=== PATIENT | male | born 1995 | race Caucasian/White ===

== ENCOUNTER 2024-11-18 06:56 | Inpatient (IN) | payer SELFPAY ==
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
[2024-11-18] VITALS (7 sets, daily range): BP systolic 114–158; BP diastolic 65–108; PULSE 65–82; RESP 12–18; TEMP 36.3–36.8; O2SAT 97–100; BMI 18.2
--- NOTE | ~2024-11-18 | CT_ITS ---
EXAMINATION: CT abdomen pelvis wo con, 11/18/2024 8:35 CDT HISTORY: upper abdominal pain, vomiting COMPARISON: No comparisons available. TECHNIQUE: CT scan of the abdomen and pelvis was performed without IV contrast. One or more of the following dose reduction techniques were used: automated exposure control, adjustment of the mA and/or kV according to patient size, use of iterative reconstruction technique. Unless otherwise stated, incidental findings do not require dedicated follow up imaging FINDINGS: CT abdomen: LUNG BASES: The lung bases are clear. The visualized portions of the heart and pericardium are unremarkable. LIVER: Unremarkable, liver contours intact, no lesions. SPLEEN: Unremarkable, no splenomegaly. KIDNEYS: Right Kidney: Unremarkable. No calculi. No hydronephrosis. Left Kidney: Unremarkable. No calculi. No hydronephrosis ADRENAL GLANDS: Unremarkable. PANCREAS: Unremarkable. GALLBLADDER/BILIARY: Unremarkable. No biliary dilatation. STOMACH AND ESOPHAGUS: Adjacent to the gastric pylorus there is a probable large diverticulum extending superiorly into the pericholecystic space in AP and transverse dimensions 1.5 x 1 cm and longitudinally 3.8 cm, there is no surrounding inflammation however there is distention of the stomach noted. BOWEL/MESENTERY: No colitis or diverticulitis. Appendix normal. Mesentery normal. No dilated small bowel loops. ADENOPATHY/RETROPERITONEUM: No lymphadenopathy. AORTA/VASCULATURE: Normal caliber aorta. FREE FLUID OR FREE AIR: None. CT pelvis: SOLID ORGANS/REPRODUCTIVE: Unremarkable. BLADDER: Within normal limits. OSSEOUS STRUCTURES: No acute osseous abnormality.No suspicious lesions. OVERLYING SOFT TISSUES: Unremarkable. IMPRESSION: Unusual air collection detailed above possibly a large eccentrically located gastric diverticulum although the appearance is atypical. Possibility of a contained perforated gastric ulcer is not excluded. Clinical correlation is required. Endoscopy may be of benefit Reviewed, dictated and finalized at location P. IMPRESSION: Unusual air collection detailed above possibly a large eccentrically located ga stric diverticulum although the appearance is atypical. Possibility of a contai tia perforated gastric ulcer is not excluded. Clinical correlation is required. Endoscopy may be of benefit
--- NOTE | ~2024-11-18 | XR_ITS ---
EXAMINATION: XR UGI water soluble wo kub DATE: 11/18/2024 12:14 INDICATION: Possible perforated viscus. Vomiting and abdominal pain. TECHNIQUE: The patient drank water-soluble contrast. A total of 780 fluoroscopic images of the esophagus, stomach, and proximal small bowel were obtained. Planned small bowel follow-through portion of the study was not obtained as patient terminated the procedure, refusing to ingest more contrast following the upper GI portion of the examination. A total of 2 overhead radiographs and 778 fluoroscopic images were recorded. Fluoroscopy exposure time was 1.8 minutes. Total DAP was 4.9 Gycm^2. COMPARISON: . FINDINGS: The esophagus is normal without mass or stricture. Esophageal motility is normal. There is no hiatal hernia. There are couple episodes of spontaneous gastroesophageal reflux of a small amount of contrast into the distal esophagus.. The stomach and proximal small bowel are normal. No evident residual contrast in the region of the gastric pylorus or duodenal bulb. The proximal most duodenum however does loop slightly more cephalad than typical which likely accounts for the region of gas identified on the prior CT. IMPRESSION: 1. A couple episodes of spontaneous gastroesophageal reflux of small amounts of contrast into the distal esophagus. Otherwise unremarkable upper GI study. Of note there is no evident extraluminal leakage of contrast in the region of gas identified on prior CT which is likely within the duodenal bulb which lies slightly more cephalad than typical. Reviewed, dictated and finalized at location A. IMPRESSION: 1. A couple episodes of spontaneous gastroesophageal reflux of small amounts of contrast into the distal esophagus. Otherwise unremarkable upper GI study. Of note there is no evident extraluminal leakage of contrast in the region of gas identified on prior CT which is likely within the duodenal bulb which lies slig htly more cephalad than typical.
--- OUTSIDE RECORDS SUMMARY | 2024-11-18 07:27 | XMS_ITS | Patient Health Record ---
[facility] Organization [facility] Address [address] [place] [address] Support Name Relationship Address Phone MARTHA HUNT Emergency Contact Unknown ELIZABETH SETHI Guarantor Unknown [phone] Reason For Referral No Information Social History Social History Drugs/Alcohol: Social Info Question Answer Notes Drugs Have you used drugs other than those for medical reasons in the past 12 months? 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 some days, but not every day How many cigarettes a day do you smoke? 5 or less Plan Of Treatment No Information
--- OUTSIDE RECORDS SUMMARY | 2024-11-18 07:28 | XMS_ITS | Clinical Summary ---
Author Organization [facility] Address [address] [place] [address] Care Team Providers Care Italian Lecturer Name Role Phone Doris Tenorio MD Primary Care Provider Source Comments [facility],non-owned Affiliates and Associated Physician Practices is amultiple site organization consisting of ambulatory clinics and hospital sitesin [place], [place], [place] and [place]. This disclosure is being madepursuant to the Care Everywhere program and may not contain all information available regarding this patient. Last updated 17.[facility] Allergies Active Allergy Reactions Criticality Noted Date Comments Methylphenidate Hcl Er Anaphylaxis High 06/30/2024 Medications * Be aware that medications may not be up to date on this document. Alwaysverify current medications with the patient. ondansetron, disintegrating, (Zofran ODT) 4 MG tablet Take 1 (one) tablet by mouth every 6 hours as needed for Nausea/Vomiti ng Allow tablet to dissolve on the tongue 12 tablet 06/30/2024 Active Social History Tobacco Use Types Packs/Day Years Used Date Smoking Tobacco: Never Assessed Sex and Gender Information Value Date Recorded Sex Assigned at Not on file Legal Sex Male 5:31 PM CDT Gender Identity Not on file Sexual Orientation Not on file Last Filed Vital Signs Vital Sign Reading Time Taken Comments Blood Pressure 155/60 06/30/2024 6:50 PM CDT Pulse 52 06/30/2024 6:50 PM CDT Temperature 36.1 C (96.9 F) 06/30/2024 5:39 PM CDT Respiratory Rate 14 06/30/2024 6:50 PM CDT Oxygen Saturation 99% 06/30/2024 6:50 PM CDT Inhaled Oxygen Concentration - - Weight 48.1 kg (106 lb) 06/30/2024 5:39 PM CDT Height 167.6 cm (5' 6) 06/30/2024 5:39 PM CDT Body Mass Index 17.11 06/30/2024 5:39 PM CDT Plan of Treatment Health Maintenance Due Date Last Done Comments HIV SCREENING 01/29/2008 DTAP/TDAP/TD VACCINES (1 - Tdap) 01/29/2012 HEPATITIS B VACCINE (1 of 3 - 19+ 3-dose series) 01/29/2012 HPV VACCINE (1 - 3-dose SCDM series) 01/29/2020 DEPRESSION SCREENING 02/21/2024 MEDICARE AWV CALENDAR YEAR 2024 COVID-19 VACCINE (1 - 2023-2 5 season) 2024 INFLUENZA VACCINE (#1) 2024 ZOSTER VACCINE (1 of 2) 2043 HEPATITIS C SCREENING Completed 08/08/2022 HIB VACCINE Aged Out No longer eligi ble based on patient's age to complete this topic MENINGOCOCCAL (Group B) VACC INE SHARED DECISION-MAKING Aged Out No longer eligibl e based on patient's age to complete this topic MENINGOCOCCAL GROUPS A/C/Y/W VACCINE Aged Out No longer eligible b ased on patient's age to complete this topic PNEUMOCOCCAL VACCINE Aged Out No long er eligible based on patient's age to complete this topic Insurance MEDICARE ADV Care Teams Italian Lecturer Relationship Specialty Start Date End Date Doris Tenorio MD [facility] [address] [place] [id number] PCP - General Family Medicine 06/30/24
--- OUTSIDE RECORDS SUMMARY | 2024-11-18 07:28 | XMS_ITS | Patient Health Record ---
Author Organization [facility] Address [address] [place] [address] [address] [place] [place] [address] Care Team Providers Care Local Hazmat Driver Name Role Phone Anais Garza Unavailable [phone] Allergies Allergen (clinical drug ingredient) Drug/Non Drug Allergy documented on EMR Reaction Allergy Type Onset Date Status methylphenidate Methylphenidate Unknown Drug Allergy Active methylphenidate Ritalin Unknown Drug Allergy A ctive Reason For Referral No Information Social History Social History Drugs/Alcohol: Social Info Question Answer Notes Drug Use Are you a drug user? Yes What form of drug do you use? Marijuana Alcohol Use Do you drink alcohol? No Tobacco Use: Social Info Question Answer Notes Tobacco Use Do you smoke - Yes How many cigarettes a day do you smoke - pack per day Plan Of Treatment No Information Insurance Providers Payer Name Payer Address Payer Phone Subscriber Number Group Number Insured Name Patient Relationship to Insured Coverage Start Date Coverage End Date [place] [id number] [address] [place] [id number] [phone] [id number] [facility] Jimbo Alvarado Self - patient is the insured Medical (General) History Medical History History ICD Code Depression Surgical History Surgery Date(Month/Year) Tonsilectomy Adnoids Rt knee Jaw Hospitalization History Reason Date(Month/Year) Psych X 2
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
[2024-11-18] MEDS: PANTOPRAZOLE SODIUM IV 40 MG VIAL IV PUSH ×3 (07:32→17:48)
[2024-11-18] MEDS: ONDANSETRON INJ 4 MG/2 ML VIAL IV PUSH (07:32)
[2024-11-18] MEDS: LACTATED RINGERS 1,000 ML 999 ML IV CONT (07:33)
[2024-11-18 07:49] LABS: Hematocrit 57.0 % (42.0-52.0); Hemoglobin 20.3 g/dL (14.0-18.0); Immature Granulocyte Percent A 0.6 % (0-0.5); Lymphocytes Absolute Auto 0.68 K/mm3 (0.9-3.2); Mean Corpuscular HGB Conc 35.6 g/dl (32-36); Mean Corpuscular Hemoglobin 30.9 pg (26-34); Mean Corpuscular Volume 86.8 fl (80-100); Nucleated Red Blood Cells Absolute Auto 0.000 K/mm3 (0.0-0.012); Nucleated Red Blood Cells Perc 0.0 % (0.0-0.2); Platelet Count Result 368 k/mm3 (150-375); Red Blood Count 6.57 M/mm3 (4.6-6.20); White Blood Count 25.8 K/mm3 (4.5-10.0)
[2024-11-18 08:13] LABS: Alanine Aminotransferase 25 U/L (6-50); Albumin Level 5.8 g/dL (3.5-5.1); Alkaline Phosphatase 99 U/L (38-126); Anion Gap 24 mmol/L (4-12); Aspartate Amino Transferase 32 U/L (17-59); Bilirubin,Total 1.4 mg/dL (0.2-1.3); Blood Urea Nitrogen 28 mg/dL (9-20); Calcium 11.6 mg/dL (8.4-10.2); Carbon Dioxide 16 mmol/L (22-30); Chloride 99 mmol/L (98-107); Estimated CRCL calculation 22 ml/min; Estimated Glomerular Filt Rate 22; Glucose 155 mg/dL (65-110); Lipase 69 U/L (23-300); Magnesium 2.4 mg/dL (1.6-2.3); Potassium 3.8 mmol/L (3.4-5.0); Sodium 139 mmol/L (137-145)
[2024-11-18 08:19] LABS: Total Protein 10.8 g/dL (6.3-8.2)
--- NOTE | 2024-11-18 08:32 | ED.ABDPAIN ---
HPI - Abdominal Pain General Chief Complaint: Abdominal Pain Stated Complaint: ABD PAIN Time Seen by Provider: 11/18/24 07:12 Source: patient, EMS and RN notes reviewed Mode of arrival: EMS Limitations: no limitations History of Present Illness HPI narrative: This is a 29 year old male with history of Crohn's disease who presents for evaluation of abdominal pain with nausea and vomiting. She states she developed generalized abdominal pain yesterday and it has been constant. She has been having nausea and vomiting and unable to keep anything down. He also reports cramping all over her body. HE denies fever or chills. He states that he was hospitalized 3 weeks ago in [place] for kidney injury from similar symptoms. Related Data Home Medications ?Medication ?Instructions ?Recorded ?Confirmed ?Last Taken ?Type No Home Medications 11/18/24 11/18/24 Unknown History Allergies Allergy/AdvReac Type Severity Reaction Status Date / Time methylphenidate (From Allergy Intermediate Anaphylaxis Verified 11/18/24 07:13 Ritalin) [facility] Past Medical History Medical History (Updated 11/18/24 @ 13:56 by Samia Bernard MD) Crohn disease Social History Social History (Updated 11/18/24 @ 13:46 by Samia Bernard MD) Substance use: never Exam Const: General: no acute distress and alert Nutritional Appearance: thin Orientation/consciousness: patient oriented x3 HENMT: Head: normal to inspection Eyes: EOM: EOMs intact bilaterally Resp: Effort & Inspection: normal respiratory effort Auscultation: clear to auscultation bilaterally Cardio: Rate: regular rate Rhythm: regular rhythm Heart sounds: no murmurs GI: GI Palp: Yes Soft to palpation, No Tenderness to palpation present (GI), No Guarding due to palpation present (GI) and No Rigid due to palpation Auscultation: normal bowel sounds Skin: General skin exam: normal color Rashes: no rashes Neuro: General: patient oriented x3, moves all extremities and CN's II-XI intact bilaterally Psych: Mental Status: mental status grossly normal Affect: normal affect Attitude: cooperative Course Reevaluation(s) Reevaluation #1: I discussed with patient plan to admit with kidney failure and possible perforated viscous. He was given morphine 2 mg IV and phenergan 12.5mg for continued nausea. He stated he needed these meds for NGT placement and then nursing reports he refused NG. Date: 11/18/24 Time: 10:30 Consultations Consultation #1: I Spoke with Dr. Garcia about patient labs and CT. He thinks this is more surgical so at this time he can be consulted if they decide its needed. Date: 11/18/24 Time: 09:53 Consultation #2: I spoke with DR. Olivas. He recommends Upper GI, antibiotics and NPO. Date: 11/18/24 Time: 10:12 Vital Signs Vital signs: Vital Signs Temperature 97.3 F L 11/18/24 07:00 Pulse Rate 76 11/18/24 07:00 Respiratory Rate 18 11/18/24 07:00 Blood Pressure 151/108 H 11/18/24 07:00 Pulse Oximetry 100 11/18/24 07:00 Oxygen Delivery Room Air 11/18/24 07:00 Temperature 97.3 F L 11/18/24 07:00 Pulse Rate 71 11/18/24 10:27 Respiratory Rate 12 11/18/24 10:27 Blood Pressure 134/87 11/18/24 10:27 Pulse Oximetry 100 11/18/24 10:27 Oxygen Delivery Room Air 11/18/24 07:00 MDM - Abdominal Pain MDM Narrative Medical decision making narrative: Patient presents with nausea, vomiting and abdominal pain. Labs ordered and 1 liter LR initially ordered with 4 mg Zofran. Labs return with elevated wbc 25 K and hemoglobin 20 suggesting hemoconcentration for vomiting, dehydration. CMP shows elevated Cr of 3.2 and we do not have comparison labs. Calcium elevated 11. [address] abdomen and pelvis ordered without contrast due to elevated wbc. CT shows gastric diverticulum vs perforated viscous. I spoke with GI and consulted General surgery. IV morphine and phenergan given to patient. Hospitalist given report and she accepted patient to service. Differential Diagnosis Differential diagnosis: Likely abdominal pain, acute appendicitis, gastroenteritis, pancreatitis, small bowel obstruction and other ([place], perforated viscous) Lab Data Attestation: I reviewed the patient's lab results. 11/18/24 07:34 11/18/24 07:34 Labs: Lab Results 11/18/24 11/18/24 11/18/24 Range/Units 07:34 08:47 09:49 WBC 25.8 H (4.5-10.0) K/mm3 RBC 6.57 H (4.6-6.20) M/mm3 Hgb 20.3 H (14.0-18.0) g/dL Hct 57.0 H (42.0-52.0) % MCV 86.8 (80-100) fl MCH 30.9 (26-34) pg MCHC 35.6 (32-36) g/dl RDW 13.2 (11.5-14.5) % Plt Count 368 (150-375) k/mm3 MPV 10.4 (7.4-10.4) fl Immature Gran % (Auto) 0.6 H (0-0.5) % Neut % (Auto) 91.2 H (45.5-73.1) % Lymph % (Auto) 2.6 L (18.3-44.2) % Carson % (Auto) 5.4 (2.6-8.5) % Eos % (Auto) 0.0 (0-4.4) % Baso % (Auto) 0.2 (0.2-1.2) % Lymph # (Auto) 0.68 L (0.9-3.2) K/mm3 Carson # (Auto) 1.4 H (0.1-0.6) K/mm3 Eos # (Auto) 0.0 (0-0.3) K/mm3 Baso # (Auto) 0.0 (0.0-0.1) K/mm3 Abs Immat Gran (auto) 0.15 H (0.00-0.031) K/mm3 Absolute Neuts (auto) 23.6 H (1.3-6.7) K/mm3 Absolute Nucleated RBC 0.000 (0.0-0.012) K/mm3 Nucleated RBC % 0.0 (0.0-0.2) % Sodium 139 (137-145) mmol/L Potassium 3.8 (3.4-5.0) mmol/L Chloride 99 (98-107) mmol/L Carbon Dioxide 16 L (22-30) mmol/L Anion Gap 24 H (4-12) mmol/L BUN 28 H (9-20) mg/dL Creatinine 3.27 H (0.7-1.3) mg/dL Estim Creat Clear Calc 22 ml/min Estimated GFR 22 L (59 - ) Glucose 155 H (65-110) mg/dL Lactic Acid 1.5 (0.7-2.0) mmol/L Calcium 11.6 H (8.4-10.2) mg/dL Magnesium 2.4 H (1.6-2.3) mg/dL Total Bilirubin 1.4 H (0.2-1.3) mg/dL AST 32 (17-59) U/L ALT 25 (6-50) U/L Alkaline Phosphatase 99 (38-126) U/L Total Protein 10.8 H (6.3-8.2) g/dL Albumin 5.8 H (3.5-5.1) g/dL Lipase 69 (23-300) U/L Urine Color Dark yellow (Yellow) Urine Appearance Turbid H (Clear) Urine pH 5.0 (5.0-9.0) Ur Specific [place] 1.023 (1.001-1.035) Urine Protein 4+ H (Negative) mg/dL Urine Glucose (UA) Trace H (Negative) mg/dL Urine Ketones Trace H (Negative) mg/dL Ur Blood (Man) 3+ H (Negative) Urine Nitrate Negative (Negative) Urine Bilirubin 2+ H (Negative) Urine Urobilinogen 1.0 (<2.0) mg/dL Add Ur Microanalysis Reviewed Leukocyte Esterase Rfl 1+ H (Negative) EDITH/UL Urine RBC 6-10 H (0-2) /hpf Urine WBC 21-50 H (0-3) /hpf Ur Squamous Epith Cells Few (Few) /hpf Urine Bacteria None seen /hpf Urine Casts >20 Hyaline Casts Present (None) /lpf Granular Casts Present (None) /lpf Waxy Casts Present H (None) /lpf Urine Mucus Present /lpf Imaging Data Radiologist's impression: ITS Impressions Abdomen/Pelvis CT 11/18/24 08:48 IMPRESSION: Unusual air collection detailed above possibly a large eccentrically located gastric diverticulum although the appearance is atypical. Possibility of a contained perforated gastric ulcer is not excluded. Clinical correlation is required. Endoscopy may be of benefit Upper GI Series 11/18/24 12:24 IMPRESSION: 1. A couple episodes of spontaneous gastroesophageal reflux of small amounts of contrast into the distal esophagus. Otherwise unremarkable upper GI study. Of note there is no evident extraluminal leakage of contrast in the region of gas identified on prior CT which is likely within the duodenal bulb which lies slightly more cephalad than typical. Critical Care Time Critical Care Time Critical Care Time: Yes Total Critical Care Time: 40 Discharge Plan Discharge Clinical Impression: Acute kidney injury, Hypercalcemia, Dehydration, Abnormal abdominal CT scan Nausea & vomiting Qualifiers: Vomiting type: unspecified Qualified Code(s): R11.2 - Nausea with vomiting, unspecified Patient Disposition: Still a Patient Condition: Guarded Prognosis
--- NOTE | 2024-11-18 08:36 | PC.NURSE ---
Pt to CT scan via stretcher
[2024-11-18] MEDS: SODIUM CHLORIDE 0.9% IV 1,000 ML 999 ML IV CONT (08:43)
[2024-11-18 09:27] LABS: Add Urine Microscopic? YES; Appearance Urine Turbid (Clear); Glucose Urine UA Trace mg/dL (Negative); Leukocyte Esterase Ur 1+ LEU/UL (Negative); Need Manual Microscopic Reviewed; Nitrate Urine Negative (Negative); Non Pathogenic Casts >20; Specific Grav Ur 1.023 (1.001-1.035)
[2024-11-18] MEDS: cefTRIAXone 1 GM in SODIUM CHLORIDE 0.9% IV 50 ML 100 ML IVPB (09:58)
[2024-11-18] MEDS: metroNIDAZOLE 500 MG/ISO 100ML 500 MG/100 ML BAG 100 MG IVPB ×2 (10:28→20:59)
--- NOTE | 2024-11-18 10:42 | P.CONGS_ITS ---
Assessment and Plan Assessment and plan (1) Abdominal pain: Code(s): R10.9 - Unspecified abdominal pain Status: Acute Assessment and Plan: Patient presented to the ED this morning with 1 day of abdominal pain with associated nausea and vomiting. Denies hematemesis. Patient has history of Crohn's disease, but denies following with the GI doctor. He does not take any medications or steroids for his Crohn's. Upon admission to the ED, lab work revealed a WBC count of 25.8. A CT of the abdomen and pelvis was obtained and demonstrated a large eccentrically located gastric atypically appearing diverticulum that could also represent a contained perforated gastric ulcer. Patient does not show any signs of acute peritonitis. Minimally tender to palpation of his abdomen. * NG tube ordered. Once placed, we will obtain upper GI series. We will follow for results and treat accordingly. * Continue IV antibiotics, IV fluids and pain and nausea control. Patient should remain NPO. (2) Acute kidney injury: Code(s): N17.9 - Acute kidney failure, unspecified Status: Acute Assessment and Plan: Lab work revealed elevated BUN of 28 and elevated creatinine of 3.27. Patient does state that 3 weeks ago he was hospitalized in [place] for abdominal pain and was found to have MIRACLE. He states that he was told he had severe dehydration. Denies any urinary symptoms. Continue IV fluids and manage per hospitalist team. Plan Discussed patient's case and plan of care with Dr. Anthony. History of Present Illness Consult details Consult date: 11/18/24 Reason for consult: other (possible perforated gastric ulcer) Requesting physician: Samia Bernard MD Narrative: Patient is a 29 year old male current smoker with history of Crohns who we have been asked to see in surgical consultation for a possible perforated gastric ulcer. Patient states that he awoke yesterday with mid abdominal pain. He then developed nausea and vomiting. No hematemesis. He notes several episodes of emesis with last episode being this morning before presenting to the ED. Patient has had similar instances of this pain in the past. He was recently admitted to a hospital in [place] for similar symptoms, and was found to have an MIRACLE. He states that doctors told him he was severely dehydrated. He denies having any imaging or other testing done during this hospitalization. Patient states that he was diagnosed with Crohns many years ago. He denies being on any medication for this. He states that he usually just presents to the ED when he has flare ups. Denies taking steroids. He states he has never followed with a GI doctor. Patient's last BM was 2 days ago. He late at two days ago. Upon admission to the ED this morning, patient's vital signs have been stable aside from some elevated blood pressures, now stabilized. Labs revealed a WBC count of 25.8. Hgb 20.3. BUN/Cr elevated. A CT of the abdomen and pelvis was obtained and demonstrated a probable large diverticulum adjacent to the gastric pylorus extending superiorly into the pericholecystic space in AP and transverse dimensions 1.5 x 1 cm in longitudinal only 3.8 cm. No surrounding inflammation, however there is distension of the stomach. Radiology report read a possibility of a contained perforated gastric ulcer. At this point, general surgery team was consulted. Patient will be admitted to the hospitalist service for medical management. Upon my interview with the patient, he repeatedly asked for Phenergan. [facility] Social History Social History (Updated 11/18/24 @ 08:35 by Samia Bernard MD) Smoking status: Current every day smoker Substance use: never Meds Home Medications and Allergies Allergies Allergy/AdvReac Type Severity Reaction Status Date / Time methylphenidate (From Allergy Intermediate Anaphylaxis Verified 11/18/24 07:13 Ritalin) Vital Signs Vital Signs - 24 hr 11/18/24 07:00 11/18/24 08:47 11/18/24 09:55 Temperature 97.3 F L Pulse Rate 76 65 75 Respiratory Rate 18 12 17 Blood Pressure 151/108 H 125/105 H 139/97 H Pulse Oximetry 100 100 100 Oxygen Delivery Room Air 11/18/24 10:27 Temperature Pulse Rate 71 Respiratory Rate 12 Blood Pressure 134/87 Pulse Oximetry 100 Oxygen Delivery Exam 2 Const: General: uncomfortable Neck: Neck: supple and no JVD Resp: Effort & Inspection: normal respiratory effort Cardio: Rate: regular rate GI: Inspection: non-distended GI Palp: Yes Soft to palpation, Yes Tenderness to palpation present (GI) (Note some mild tenderness. No peritoneal signs.), No Guarding due to palpation present (GI) and No Hernia present A uscultation: abnormal bowel sounds (Hypoactive) Other: When left mid abdomen was palpated, patient stated that this felt like a massage and did not elicit pain. Skin: General skin exam: normal color and no rashes or lesions noted Neuro: Speech: normal speech Extrem: General: normal to inspection Psych: Mental Status: mental status grossly normal Results Labs 11/18/24 07:34 11/18/24 07:34 Labs: Abnormal lab results 11/18/24 11/18/24 Range/Units 07:34 08:47 WBC 25.8 H (4.5-10.0) K/mm3 RBC 6.57 H (4.6-6.20) M/mm3 Hgb 20.3 H (14.0-18.0) g/dL Hct 57.0 H (42.0-52.0) % Immature Gran % (Auto) 0.6 H (0-0.5) % Neut % (Auto) 91.2 H (45.5-73.1) % Lymph % (Auto) 2.6 L (18.3-44.2) % Lymph # (Auto) 0.68 L (0.9-3.2) K/mm3 [place] # (Auto) 1.4 H (0.1-0.6) K/mm3 Abs Immat Gran (auto) 0.15 H (0.00-0.031) K/mm3 Absolute Neuts (auto) 23.6 H (1.3-6.7) K/mm3 Carbon Dioxide 16 L (22-30) mmol/L Anion Gap 24 H (4-12) mmol/L BUN 28 H (9-20) mg/dL Creatinine 3.27 H (0.7-1.3) mg/dL Estimated GFR 22 L (59 - ) Glucose 155 H (65-110) mg/dL Calcium 11.6 H (8.4-10.2) mg/dL Magnesium 2.4 H (1.6-2.3) mg/dL Total Bilirubin 1.4 H (0.2-1.3) mg/dL Total Protein 10.8 H (6.3-8.2) g/dL Albumin 5.8 H (3.5-5.1) g/dL Urine Appearance Turbid H (Clear) Urine Protein 4+ H (Negative) mg/dL Urine Glucose (UA) Trace H (Negative) mg/dL Urine Ketones Trace H (Negative) mg/dL Ur Blood (Man) 3+ H (Negative) Urine Bilirubin 2+ H (Negative) Leukocyte Esterase Rfl 1+ H (Negative) EDITH/UL Urine RBC 6-10 H (0-2) /hpf Urine WBC 21-50 H (0-3) /hpf Waxy Casts Present H (None) /lpf Diabetes panel 11/18/24 Range/Units 07:34 Sodium 139 (137-145) mmol/L Potassium 3.8 (3.4-5.0) mmol/L Chloride 99 (98-107) mmol/L Carbon Dioxide 16 L (22-30) mmol/L BUN 28 H (9-20) mg/dL Creatinine 3.27 H (0.7-1.3) mg/dL Glucose 155 H (65-110) mg/dL Calcium 11.6 H (8.4-10.2) mg/dL AST 32 (17-59) U/L ALT 25 (6-50) U/L Alkaline Phosphatase 99 (38-126) U/L Total Protein 10.8 H (6.3-8.2) g/dL Albumin 5.8 H (3.5-5.1) g/dL Calcium panel 11/18/24 Range/Units 07:34 Calcium 11.6 H (8.4-10.2) mg/dL Albumin 5.8 H (3.5-5.1) g/dL Pituitary panel 11/18/24 Range/Units 07:34 Sodium 139 (137-145) mmol/L Potassium 3.8 (3.4-5.0) mmol/L Chloride 99 (98-107) mmol/L Carbon Dioxide 16 L (22-30) mmol/L BUN 28 H (9-20) mg/dL Creatinine 3.27 H (0.7-1.3) mg/dL Glucose 155 H (65-110) mg/dL Calcium 11.6 H (8.4-10.2) mg/dL Adrenal panel 11/18/24 Range/Units 07:34 Sodium 139 (137-145) mmol/L Potassium 3.8 (3.4-5.0) mmol/L Chloride 99 (98-107) mmol/L Carbon Dioxide 16 L (22-30) mmol/L BUN 28 H (9-20) mg/dL Creatinine 3.27 H (0.7-1.3) mg/dL Glucose 155 H (65-110) mg/dL Calcium 11.6 H (8.4-10.2) mg/dL Total Bilirubin 1.4 H (0.2-1.3) mg/dL AST 32 (17-59) U/L ALT 25 (6-50) U/L Alkaline Phosphatase 99 (38-126) U/L Total Protein 10.8 H (6.3-8.2) g/dL Albumin 5.8 H (3.5-5.1) g/dL All other labs normal.
[2024-11-18] MEDS: PROMETHAZINE HCL 25 MG/ML AMPUL 12.5 MG IV PUSH (10:46)
[2024-11-18] MEDS: MORPHINE SULFATE (*CRX) 4 MG/ML INJ 2 MG IV PUSH ×2 (10:46→13:03)
--- NOTE | 2024-11-18 11:05 | PC.NURSE ---
After inital attempt for NG tube insertion after pain and nausea medication, pt declines NG tube. Pt states Im afraid Im gonna hurt y'all, only way to get this in is for a bunch of grown men to hold me down and force it. This RN requested another attempt and pt refuses NG tube, states Tell the surgeon he will have to do surgery.
--- NOTE | 2024-11-18 12:32 | PM.IMHP ---
H&P: HPI History of Present Illness Date/Time: 11/18/24 12:32 Chief Complaint: Abdominal pain, nausea, vomiting Diarrhea Narrative: 29-year-old male with complex past medical history of Crohn's disease, not on any treatment, presenting with acute abdominal pain, nausea, vomiting, diarrhea. He is not from this area, he was passing through this region, when he decided to come to the emergency room with ongoing abdominal pain. According to him he was admitted in [place] for similar symptoms 3 weeks ago, was treated with IV fluids, discharged. Complains of ongoing abdominal pain, with nausea, vomiting. Denies any blood in the vomitus. Has been having diarrhea for past 2 days as well, denies any blood in stool. Noted to have a leukocytosis of 25.8. CT abdomen pelvis shows Unusual air collection detailed above possibly a large eccentrically located gastric diverticulum although the appearance is atypical. Possibility of a contained perforated gastric ulcer is not excluded. Surgery was consulted. Review of Systems Review of Systems: All systems reviewed & are unremarkable except as noted in HPI and below PMFSH Past Medical History Medical History (Updated 11/18/24 @ 12:49 by Renee Cobb MD) Crohn disease Social History Social History Smoking status: Current every day smoker Substance use: never Meds Home Medications and Allergies Allergies Allergy/AdvReac Type Severity Reaction Status Date / Time methylphenidate (From Allergy Intermediate Anaphylaxis Verified 11/18/24 07:13 Ritalin) Vital Signs Vital Signs - 24 hr 11/18/24 07:00 11/18/24 08:47 11/18/24 09:55 Temperature 97.3 F L Pulse Rate 76 65 75 Respiratory Rate 18 12 17 Blood Pressure 151/108 H 125/105 H 139/97 H Pulse Oximetry 100 100 100 Oxygen Delivery Room Air 11/18/24 10:27 Temperature Pulse Rate 71 Respiratory Rate 12 Blood Pressure 134/87 Pulse Oximetry 100 Oxygen Delivery Exam Const: General: uncomfortable HENMT: Face/Nose/Sinus: Normal nares present Mouth: Yes dry mucous membranes Eyes: Sclera: sclerae normal Neck: Neck: supple Resp: Effort & Inspection: normal respiratory effort Auscultation: clear to auscultation bilaterally Cardio: Rate: regular rate Rhythm: regular rhythm GI: GI Palp: Yes Firmness to palpation present (GI) and Yes Tenderness to palpation present (GI) Auscultation: normal bowel sounds Skin: General skin exam: normal color Neuro: Speech: normal speech Extrem: General: normal to inspection Psych: Mental Status: mental status grossly normal H&P: Results Labs Labs: Short CBC 11/18/24 Range/Units 07:34 WBC 25.8 H (4.5-10.0) K/mm3 Hgb 20.3 H (14.0-18.0) g/dL Hct 57.0 H (42.0-52.0) % Plt Count 368 (150-375) k/mm3 BMP 11/18/24 07:34 Sodium 139 Potassium 3.8 Chloride 99 Carbon Dioxide 16 L BUN 28 H Creatinine 3.27 H Glucose 155 H Calcium 11.6 H Liver Function 11/18/24 Range/Units 07:34 Total Bilirubin 1.4 H (0.2-1.3) mg/dL AST 32 (17-59) U/L ALT 25 (6-50) U/L Alkaline Phosphatase 99 (38-126) U/L Albumin 5.8 H (3.5-5.1) g/dL Urine 11/18/24 Range/Units 08:47 Urine Color Dark yellow (Yellow) Urine Appearance Turbid H (Clear) Urine pH 5.0 (5.0-9.0) Ur Specific [place] 1.023 (1.001-1.035) Urine Protein 4+ H (Negative) mg/dL Urine Glucose (UA) Trace H (Negative) mg/dL Assessment and Plan Assessment and plan (1) Abdominal pain: Code(s): R10.9 - Unspecified abdominal pain Status: Acute (2) Acute kidney injury: Code(s): N17.9 - Acute kidney failure, unspecified Status: Acute (3) Dehydration: Code(s): E86.0 - Dehydration Status: Acute (4) Nausea & vomiting: Code(s): R11.2 - Nausea with vomiting, unspecified Status: Acute (5) Diarrhea: Code(s): R19.7 - Diarrhea, unspecified Status: Acute (6) Hypercalcemia: Code(s): E83.52 - Hypercalcemia Status: Acute (7) Leucocytosis: Code(s): D72.829 - Elevated white blood cell count, unspecified Status: Acute (8) UTI (urinary tract infection): Code(s): N39.0 - Urinary tract infection, site not specified Status: Acute Plan 29-year-old male with past medical history of untreated Crohn's disease presenting with abdominal pain, nausea, vomiting, diarrhea. CT abdomen pelvis with Unusual air collection detailed above possibly a large eccentrically located gastric diverticulum although the appearance is atypical. Possibility of a contained perforated gastric ulcer is not excluded. Surgery has been consulted. 1.? Perforated gastric ulcer: Admit to general medicine NPO IV fluids Zofran, Compazine p.r.n. for nausea, vomiting PPI IV b.i.d. Surgery has been consulted, appreciate the recommendation Plan for NG tube, GI series after NG tube has been placed Obtain blood culture Will start on ceftriaxone, Flagyl Patient has been having diarrhea, will obtain C diff as well Will consider GI consult if necessary 2. Acute kidney injury+ metabolic acidosis+ electrolyte abnormality: All likely in setting of severe dehydration due to ongoing nausea, vomiting, diarrhea Noted hemoconcentration with elevated hemoglobin/hematocrit Continue with IV fluids Avoid nephrotoxins Recheck BMP in a.m. Kidneys looked unremarkable on CT scan done today Nephrology consult Noted anion gap metabolic acidosis, hypercalcemia, hypermagnesemia Again continue with IV fluids 3. Possible UTI: Continue with ceftriaxone Follow-up urine culture 4. Mild hyperglycemia+ glycosuria: Obtain hemoglobin A1c with next set of labs 5. Code status: Full 6. DVT prophylaxis: SCDs 7. Disposition: Admit to General Medicine Quality VTE Prophylaxis VTE prophylaxis: mechanical ordered Hospitalist [facility] Advance Care Plan I have confirmed that the patient's Advanced Care Plan is present, code status is documented, or surrogate decision maker is listed in patient medical record.: Yes Medication Reconciliation I have utilized all available resources to obtain, update and review the patients current medications (includes all prescriptions, OTC, herbals, cannabis, and nutritional supplements).: Yes
[2024-11-18] MEDS: PROCHLORPERAZINE EDISYLATE 10 MG/2 ML VIAL IV PUSH ×2 (13:03→20:59)
[2024-11-18] MEDS: LACTATED RINGERS 1,000 ML 125 ML IV CONT ×2 (13:03→20:59)
--- NOTE | 2024-11-18 13:42 | ADMGEN ---
This patient, Jimbo Alvarado, was admitted to Medical Room 242-01. Patient/family oriented to hospital policies and general routines including ID bracelet, bed and alarms, visiting hours, pain management, procedures, bathroom and other care routines, personal items, smoking policy, room service/diet, and visiting hours. Information on how to activate the Rapid Response Team has been discussed. Patient/Family are encouraged to report perceived risks to care and to ask questions if they do not understand what they are told or what they should do.
[2024-11-18 15:42] LABS: Cannabinoid Screen Urine Positive (Negative)
--- NOTE | 2024-11-18 17:16 | P.CONNP_ITS ---
Assessment and Plan Assessment and plan (1) Acute kidney injury: Code(s): N17.9 - Acute kidney failure, unspecified Status: Acute Assessment and Plan: * as noted by admission labs * normal creatinine at baseline: * creatinine was 1.0mg/dL from [facility] * suspect etiology due to severe volume depletion based on history/labs: * elevated H/H * elevated calcium * elevated albumin * #2 * CT imaging without any kidney pathology * possible UTI playing a role? * agree with aggressive IVF hydration * follow trend of repeat labs and UOP (2) Nausea, vomiting, and diarrhea: Code(s): R11.2 - Nausea with vomiting, unspecified; R19.7 - Diarrhea, unspecified Status: Acute Assessment and Plan: * as noted by history * due to Chron's flare versus gastroenteritis versus other * IV anti-emetics and PPI * clear liquids * follow symptoms (3) Metabolic acidosis: Code(s): E87.20 - Acidosis, unspecified Status: Acute Assessment and Plan: * as noted by admission labs * due to a combination of MIRACLE/ARF and GI symptoms (vomiting + diarrhea) * follow trend with IVFs (4) Hypercalcemia: Code(s): E83.52 - Hypercalcemia Status: Acute Assessment and Plan: * likely manifestation of severe volume depletion * follow trend with IVFs (5) UTI (urinary tract infection): Code(s): N39.0 - Urinary tract infection, site not specified Status: Acute Assessment and Plan: * suggested by admission UA * follow culture results * on antibiotics (6) Crohn disease: Code(s): K50.90 - Crohn's disease, unspecified, without complications Status: Chronic Assessment and Plan: * present per patient history * however, not on any medications * unclear if related to #2 I will continue to follow the patient with you while he remains hospitalized and make further recommendations as deemed necessary. Thank you for allowing me to participate in the care of this patient. L History of Present Illness Reason for Consult Consult date: 11/18/24 Reason for consult: acute renal failure Chief Complaint Chief complaint: acute kidney failure,possible perforated viscous History of Present Illness Narrative: The patient is a 29-year-old male with a past medical history as outlined below who presented to [facility] Emergency Room with complaints of abdominal pain. The patient reports his abdominal pain has been going on for the last few days in association with nausea, vomiting, and diarrhea. given these ongoing symptoms, he states that he has not been able to eat or drink anything of substance. Furthermore, whenever he does eat or drink anything, he proceeds to have generalized nausea and subsequent vomiting afterwards. His symptoms of further complicated by generalized body aches and cramping but he denies any overt fevers or chills. On further questioning, he reports that when he was in [place] about a month ago, he had similar symptoms and was informed that he had kidney failure that resolved with IV fluid resuscitation. Given the persistence of the symptoms as mentioned, he presented to the ER for further assessment. Workup and evaluation emergency room demonstrated the patient be hemodynamically stable and afebrile. Routine blood tests were significant for white blood cell count of 25.8, hemoglobin 20.3, hematocrit 57.0, platelet count 368, sodium 139, potassium 3.8, bicarb 16, BUN 28, creatinine 3.27, glucose 155, calcium 11.6, lactic acid 1.5, magnesium 2.4, albumin of 5.8. His urinalysis was significant for 4+ protein, 3+ blood, 2+ bilirubin, 1+ leukocyte esterase, 25-50 white blood cells, 6-10 red blood cells, but no urine bacteria. Given the severity of his abdominal pain, CT scan of the abdomen pelvis was done which demonstrated a possibly large eccentric located gastric diverticulum although the appearance is atypical and the possibility of a contained perforated gastric ulcer could not be excluded. A subsequent upper GI series was done which demonstrated a couple episodes of spontaneous gastroesophageal reflux of small amounts of contrast into distal esophagus but otherwise unremarkable study. Given evidence of acute kidney injury/acute renal failure along with severe volume depletion / dehydration, he was initiated on IV fluids as well as IV antibiotics and surgery was consulted with regard to his abnormal imaging studies. Since his admission, he has been seen by General surgery. who feel that his presentation and exam are not consistent with any type of intra-abdominal pathology with the plan for serial exams and initiation of clear liquids. Renal consultation was requested due to his acute kidney injury/acute renal failure. According to the patient, he has never been told or had any issues or problems with regard to chronic kidney disease and the only time he ever was aware that he had issues with his kidneys was about a month ago when he was hospitalized in [place] for acute kidney injury/ acute renal failure. From what he tells me, by the time of discharge and after IV fluids, his kidney function was back to normal. As far as I can tell, he has no other significant risk factors for renal insufficiency with regard to hypertension, diabetes, vascular disease, kidney stones, recurrent urinary tract infections...etc . At the time of my visit, the patient does not appear to be in any acute distress. Review of Systems 2 Review of Systems: As per HPI. [facility] Past Medical History Medical History (Updated 11/19/24 @ 11:35 by Junito Dean MD) Crohn disease Social History Social History (Updated 11/18/24 @ 13:46 by Samia Bernard MD) Tobacco type: cigarettes Alcohol intake: never Substance use: never Lack of Transportation: No Lack of Food: Never True Current Housing: I Do Not Have Housing Concerned About Future Housing: No Difficulty Paying Gas/Electric Bills: No Difficulty Paying for Meds: No Currently Unemployed: Decline to Answer Education: Don't Know Difficulty w/ Childcare or Family Care: Decline to Answer Spiritual care concerns: No Meds Home Medications and Allergies Home Medications ?Medication ?Instructions ?Recorded ?Confirmed ?Type No Home Medications 11/18/24 11/18/24 H istory Allergies Allergy/AdvReac Type Severity Reaction Status Date / Time methylphenidate (From Allergy Intermediate Anaphylaxis Verified 11/18/24 07:13 Ritalin) Vital Signs Vital Signs Temp Pulse Resp BP Pulse Ox O2 Del Method 11/18/24 13:55 98.2 F 72 18 158/72 H 97 11/18/24 10:27 71 12 134/87 100 11/18/24 09:55 75 17 139/97 H 100 11/18/24 08:47 65 12 125/105 H 100 11/18/24 07:00 97.3 F L 76 18 151/108 H 100 Room Air Exam 2 Narrative: GENERAL APPEARANCE: well developed well nourished male in no acute distress HEENT: normocephalic, atraumatic, normal conjunctiva and sclera, nares patient NECK: no lymphadenopathy, thyromegaly, or JVD MOUTH: normal lips, teeth, and gums CARDIOVASCULAR: RRR, normal S1 and S2, no rub RESPIRATORY: clear to auscultation bilaterally ABDOMEN: soft, mild TTP, nondistended, positive bowel sounds present EXTREMITIES: no evidence of cyanosis, clubbing, or edema NEUROLOGICAL: alert and oriented x 3; CN II - XII intact bilaterally; no focal deficits noted Results Lab Results 11/19/24 04:41 11/19/24 04:41 Lab results: Most recent lab results Calcium 11.6 mg/dL (8.4-10.2) H 11/18/24 07:34 Magnesium 2.4 mg/dL (1.6-2.3) H 11/18/24 07:34
[2024-11-19 03:48] VITALS: BP 117/71; PULSE 60; RESP 18; TEMP 37.2; O2SAT 98
[2024-11-19 05:27] LABS: Hematocrit 44.5 % (42.0-52.0); Hemoglobin 15.4 g/dL (14.0-18.0); Immature Granulocyte Percent A 0.2 % (0-0.5); Lymphocytes Absolute Auto 2.16 K/mm3 (0.9-3.2); Mean Corpuscular HGB Conc 34.6 g/dl (32-36); Mean Corpuscular Hemoglobin 31.4 pg (26-34); Mean Corpuscular Volume 90.6 fl (80-100); Nucleated Red Blood Cells Absolute Auto 0.000 K/mm3 (0.0-0.012); Nucleated Red Blood Cells Perc 0.0 % (0.0-0.2); Platelet Count Result 227 k/mm3 (150-375); Red Blood Count 4.91 M/mm3 (4.6-6.20); White Blood Count 12.3 K/mm3 (4.5-10.0)
[2024-11-19 05:31] LABS: Hemoglobin A1C 5.3 % (<5.7)
[2024-11-19] MEDS: metroNIDAZOLE 500 MG/ISO 100ML 500 MG/100 ML BAG 100 MG IVPB (05:34)
[2024-11-19] MEDS: MORPHINE SULFATE (*CRX) 4 MG/ML INJ 2 MG IV PUSH ×2 (05:39→10:54)
[2024-11-19 05:42] LABS: Alanine Aminotransferase 14 U/L (6-50); Albumin Level 4.0 g/dL (3.5-5.1); Alkaline Phosphatase 56 U/L (38-126); Anion Gap 7 mmol/L (4-12); Aspartate Amino Transferase 41 U/L (17-59); Bilirubin,Total 1.3 mg/dL (0.2-1.3); Blood Urea Nitrogen 24 mg/dL (9-20); Calcium 9.3 mg/dL (8.4-10.2); Carbon Dioxide 25 mmol/L (22-30); Chloride 106 mmol/L (98-107); Creatine Kinase 677 U/L (55-170); Estimated CRCL calculation 73 ml/min; Estimated Glomerular Filt Rate > 60; Glucose 85 mg/dL (65-110); Magnesium 2.2 mg/dL (1.6-2.3); Potassium 3.9 mmol/L (3.4-5.0); Sodium 138 mmol/L (137-145); Total Protein 6.7 g/dL (6.3-8.2)
[2024-11-19 06:40] LABS: Total Protein Urine Random 14 mg/dL; Ur Ttl Prot Creatinine Ratio 0.07 mg/mg (0-0.20)
[2024-11-19 06:42] LABS: Total Protein Urine Random 14 mg/dL; Urea Random Urine 1164 MG/DL
[2024-11-19 06:58] LABS: Urine Eos QC 2nd Tech Confirmed
[2024-11-19] MEDS: LACTATED RINGERS 1,000 ML 125 ML IV CONT (08:04)
[2024-11-19] MEDS: PANTOPRAZOLE SODIUM IV 40 MG VIAL IV PUSH (08:07)
[2024-11-19] MEDS: cefTRIAXone 1 GM in SODIUM CHLORIDE 0.9% IV 50 ML 100 ML IVPB (08:12)
--- NOTE | 2024-11-19 08:53 | P.PNNP_ITS ---
Progress Note: A&P Assessment and Plan (1) Acute kidney injury: Code(s): N17.9 - Acute kidney failure, unspecified Status: Acute Assessment and Plan: * resolved * as noted by admission labs * normal creatinine at baseline: * creatinine was 1.0mg/dL from [facility] * suspect etiology due to severe volume depletion based on history/labs: * elevated H/H * elevated calcium * elevated albumin * #2 * CT imaging without any kidney pathology * possible UTI playing a role? * agree with aggressive IVF hydration * follow trend of repeat labs and UOP (2) Nausea, vomiting, and diarrhea: Code(s): R11.2 - Nausea with vomiting, unspecified; R19.7 - Diarrhea, unspecified Status: Acute Assessment and Plan: * as noted by history * due to Chron's flare versus gastroenteritis versus other? * IV anti-emetics and PPI * advance diet as tolerated * follow symptoms (3) Metabolic acidosis: Code(s): E87.20 - Acidosis, unspecified Status: Acute Assessment and Plan: * resolved * as noted by admission labs * due to a combination of MIRACLE/ARF and GI symptoms (vomiting + diarrhea) * follow trend with IVFs (4) Hypercalcemia: Code(s): E83.52 - Hypercalcemia Status: Acute Assessment and Plan: * resolved * likely manifestation of severe volume depletion * follow trend with IVFs (5) UTI (urinary tract infection): Code(s): N39.0 - Urinary tract infection, site not specified Status: Acute Assessment and Plan: * suggested by admission UA * follow culture results * on antibiotics (6) Crohn disease: Code(s): K50.90 - Crohn's disease, unspecified, without complications Status: Chronic Assessment and Plan: * present per patient history * however, not on any medications * unclear if related to #2 Not much else to add -- will follow from a distance. L Subjective Date/time seen: 11/19/24 08:53 Interval history: Follow-up for acute kidney injury/acute renal failure. Renal function/creatinine has normalized with current interventions/therapy (aggressive IVF resuscitation); overall, he feels significantly better with no further nausea/vomiting/diarrhea and has been able to tolerated clear liquids; no apparent distress; asking me about possible discharge. Exam 2 Narrative: General: WD/WN male in NAD Heart: normal S1 and S2; no rub Lungs: clear to auscultation Abdomen: soft, nontender, nondistended, positive bowel sounds Extremities: no cyanosis or clubbing; no edema Skin: warm and dry Objective Data Vital Signs Vital Signs: Vital Signs Temp Pulse Resp BP Pulse Ox O2 Del Method FiO2 11/19/24 03:48 98.9 F 60 18 117/71 98 11/18/24 22:00 98.0 F 82 16 114/65 100 11/18/24 20:20 97 Room Air 21 11/18/24 20:00 Room Air 11/18/24 13:55 98.2 F 72 18 158/72 H 97 Intake/Output Intake/Output: Intake & Output 11/16/24 11/17/24 11/18/24 11/19/24 23:59 23:59 23:59 23:59 Intake Total 3341.7 290 Balance 3341.7 290 Meds/Results Medications: Active Medications Generic Name Dose Route Start Last Admin Trade Name Freq PRN Reason Stop Dose Admin Ceftriaxone Sodium 1 gm/ 50 mls @ 100 mls/hr 11/19/24 09:00 Sodium Chloride IVPB Q24H YAS Metronidazole 500 mg in 100 mls @ 100 mls/hr 11/18/24 21:00 11/19/24 05:34 Flagyl 500 Mg/Iso Soln 100 Ml IVPB 100 mls/hr Q8HR YAS Administration Lactated Ringer's 1,000 mls @ 125 mls/hr 11/18/24 11:35 11/18/24 20:59 Lr - Lactated Ringers Iv IV CONT 125 mls/hr .Q8H YAS Administration Morphine Sulfate 2 mg 11/18/24 11:35 11/19/24 05:39 Morphine Sulfate (*Crx) 4 Mg/Ml Inj IV PUSH 2 mg Q4H PRN Administration Pain Rated 7-10 Ondansetron HCl 4 mg 11/18/24 11:34 Ondansetron Inj 4 Mg/2 Ml Vial IV PUSH Q4HR PRN nausea/vomiting Pantoprazole Sodium 40 mg 11/18/24 11:35 11/18/24 17:48 Pantoprazole Sodium Iv 40 Mg Vial IV PUSH 40 mg BID YAS Administration Prochlorperazine Edisylate 10 mg 11/18/24 12:31 11/18/24 20:59 Prochlorperazine Edisylate 10 Mg/2 Ml Vial IV PUSH 10 mg Q6H PRN Administration Nausea And Vomiting Radiology Results: ITS Impressions Abdomen/Pelvis CT 11/18/24 08:48 IMPRESSION: Unusual air collection detailed above possibly a large eccentrically located gastric diverticulum although the appearance is atypical. Possibility of a contained perforated gastric ulcer is not excluded. Clinical correlation is required. Endoscopy may be of benefit Upper GI Series 11/18/24 12:24 IMPRESSION: 1. A couple episodes of spontaneous gastroesophageal reflux of small amounts of contrast into the distal esophagus. Otherwise unremarkable upper GI study. Of note there is no evident extraluminal leakage of contrast in the region of gas identified on prior CT which is likely within the duodenal bulb which lies slightly more cephalad than typical. Labs Labs: Laboratory Tests 11/19/24 04:41 11/19/24 04:41 Calcium 9.3 Magnesium 2.2 Total Bilirubin 1.3 AST 41 ALT 14 Alkaline Phosphatase 56 Total Creatine Kinase 677 H Total Protein 6.7 Albumin 4.0
--- NOTE | 2024-11-19 09:22 | PM.IMPN ---
Progress Note: A&P Assessment and Plan (1) Abdominal pain: Code(s): R10.9 - Unspecified abdominal pain Status: Acute (2) Acute kidney injury: Code(s): N17.9 - Acute kidney failure, unspecified Status: Acute (3) Dehydration: Code(s): E86.0 - Dehydration Status: Acute (4) Nausea & vomiting: Qualifiers: Vomiting type: unspecified Qualified Code(s): R11.2 - Nausea with vomiting, unspecified Code(s): R11.2 - Nausea with vomiting, unspecified Status: Acute (5) Diarrhea: Code(s): R19.7 - Diarrhea, unspecified Status: Acute (6) Hypercalcemia: Code(s): E83.52 - Hypercalcemia Status: Acute (7) Leucocytosis: Code(s): D72.829 - Elevated white blood cell count, unspecified Status: Acute (8) UTI (urinary tract infection): Code(s): N39.0 - Urinary tract infection, site not specified Status: Acute Plan 29-year-old male with past medical history of untreated Crohn's disease presenting with abdominal pain, nausea, vomiting, diarrhea. CT abdomen pelvis with Unusual air collection detailed above possibly a large eccentrically located gastric diverticulum although the appearance is atypical. Possibility of a contained perforated gastric ulcer is not excluded. Surgery has been consulted. 1.? Perforated gastric ulcer: Admit to general medicine NPO IV fluids Zofran, Compazine p.r.n. for nausea, vomiting PPI IV b.i.d. Surgery has been consulted, appreciate the recommendation Plan for NG tube, GI series after NG tube has been placed Obtain blood culture Will start on ceftriaxone, Flagyl Patient has been having diarrhea, will obtain C diff as well Will consider GI consult if necessary 11/19 wbc 25.8 down to 12.3 today 2. Acute kidney injury+ metabolic acidosis+ electrolyte abnormality: All likely in setting of severe dehydration due to ongoing nausea, vomiting, diarrhea Noted hemoconcentration with elevated hemoglobin/hematocrit Continue with IV fluids Avoid nephrotoxins Recheck BMP in a.m. Kidneys looked unremarkable on CT scan done today Nephrology consult Noted anion gap metabolic acidosis, hypercalcemia, hypermagnesemia Again continue with IV fluids cr.bun 0.90/24 down from 3. nephrology following continue with IV fluids 3. Possible UTI: Continue with ceftriaxone Follow-up urine culture 4. Mild hyperglycemia+ glycosuria: Obtain hemoglobin A1c with next set of labs 5. Code status: Full 6. DVT prophylaxis: SCDs 7. Disposition: gen medicine Time Spent With Patient Time with patient: 25 - 35 minutes Subjective Date/time seen: 11/19/24 09:22 Interval history: 29-year-old male with complex past medical history of Crohn's disease, not on any treatment, presenting with acute abdominal pain, nausea, vomiting, diarrhea. He is not from this area, he was passing through this region, when he decided to come to the emergency room with ongoing abdominal pain. According to him he was admitted in [place] for similar symptoms 3 weeks ago, was treated with IV fluids, discharged. Complains of ongoing abdominal pain, with nausea, vomiting. Denies any blood in the vomitus. Has been having diarrhea for past 2 days as well, denies any blood in stool. Noted to have a leukocytosis of 25.8. CT abdomen pelvis shows Unusual air collection detailed above possibly a large eccentrically located gastric diverticulum although the appearance is atypical. Possibility of a contained perforated gastric ulcer is not excluded. Surgery was consulted. PT is seen and examined. Nephrology consulted and following. Review of Systems Review of Systems: All systems reviewed & are unremarkable except as noted in HPI and below Exam Const: General: uncomfortable HENMT: Face/Nose/Sinus: Normal nares present Mouth: Yes dry mucous membranes Eyes: Sclera: sclerae normal Neck: Neck: supple Resp: Effort & Inspection: normal respiratory effort Auscultation: clear to auscultation bilaterally Cardio: Rate: regular rate Rhythm: regular rhythm GI: Auscultation: normal bowel sounds Skin: General skin exam: normal color Neuro: Speech: normal speech Extrem: General: normal to inspection Psych: Mental Status: mental status grossly normal Objective Data Vital Signs Vital Signs: Vital Signs - 24 hr 11/18/24 09:55 11/18/24 10:27 11/18/24 13:55 Temperature 98.2 F Pulse Rate 75 71 72 Respiratory Rate 17 12 18 Blood Pressure 139/97 H 134/87 158/72 H Pulse Oximetry 100 100 97 Oxygen Delivery Fraction of Inspired Oxygen 11/18/24 20:00 11/18/24 20:20 11/18/24 22:00 Temperature 98.0 F Pulse Rate 82 Respiratory Rate 16 Blood Pressure 114/65 Pulse Oximetry 97 100 Oxygen Delivery Room Air Room Air Fraction of Inspired Oxygen 11/19/24 03:48 Temperature 98.9 F Pulse Rate 60 Respiratory Rate 18 Blood Pressure 117/71 Pulse Oximetry 98 Oxygen Delivery Fraction of Inspired Oxygen Intake/Output Intake/Output: Intake & Output 11/16/24 11/17/24 11/18/24 11/19/24 23:59 23:59 23:59 23:59 Intake Total 3341.7 1530 Balance 3341.7 1530 Meds/Results Medications: Active Medications Generic Name Dose Route Start Last Admin Trade Name Freq PRN Reason Stop Dose Admin Ceftriaxone Sodium 1 gm/ 50 mls @ 100 mls/hr 11/19/24 09:00 11/19/24 08:12 Sodium Chloride IVPB 100 mls/hr Q24H YAS Administration Metronidazole 500 mg in 100 mls @ 100 mls/hr 11/18/24 21:00 11/19/24 05:34 Flagyl 500 Mg/Iso Soln 100 Ml IVPB 100 mls/hr Q8HR YAS Administration Lactated Ringer's 1,000 mls @ 125 mls/hr 11/18/24 11:35 11/19/24 08:04 Lr - Lactated Ringers Iv IV CONT 125 mls/hr .Q8H YAS Administration Morphine Sulfate 2 mg 11/18/24 11:35 11/19/24 05:39 Morphine Sulfate (*Crx) 4 Mg/Ml Inj IV PUSH 2 mg Q4H PRN Administration Pain Rated 7-10 Ondansetron HCl 4 mg 11/18/24 11:34 Ondansetron Inj 4 Mg/2 Ml Vial IV PUSH Q4HR PRN nausea/vomiting Pantoprazole Sodium 40 mg 11/18/24 11:35 11/19/24 08:07 Pantoprazole Sodium Iv 40 Mg Vial IV PUSH 40 mg BID YAS Administration Prochlorperazine Edisylate 10 mg 11/18/24 12:31 11/18/24 20:59 Prochlorperazine Edisylate 10 Mg/2 Ml Vial IV PUSH 10 mg Q6H PRN Administration Nausea And Vomiting Radiology Results: ITS Impressions Abdomen/Pelvis CT 11/18/24 08:48 IMPRESSION: Unusual air collection detailed above possibly a large eccentrically located gastric diverticulum although the appearance is atypical. Possibility of a contained perforated gastric ulcer is not excluded. Clinical correlation is required. Endoscopy may be of benefit Upper GI Series 11/18/24 12:24 IMPRESSION: 1. A couple episodes of spontaneous gastroesophageal reflux of small amounts of contrast into the distal esophagus. Otherwise unremarkable upper GI study. Of note there is no evident extraluminal leakage of contrast in the region of gas identified on prior CT which is likely within the duodenal bulb which lies slightly more cephalad than typical. Labs Labs: Laboratory Results - last 24 hr 11/18/24 11/18/24 11/19/24 08:47 09:49 04:41 WBC 12.3 H RBC 4.91 Hgb 15.4 D Hct 44.5 MCV 90.6 MCH 31.4 MCHC 34.6 RDW 13.0 Plt Count 227 MPV 10.7 H Immature Gran % (Auto) 0.2 Neut % (Auto) 75.2 H Lymph % (Auto) 17.5 L [place] % (Auto) 6.3 Eos % (Auto) 0.6 Baso % (Auto) 0.2 Lymph # (Auto) 2.16 [place] # (Auto) 0.8 H Eos # (Auto) 0.1 Baso # (Auto) 0.0 Abs Immat Gran (auto) 0.03 Absolute Neuts (auto) 9.2 H Absolute Nucleated RBC 0.000 Nucleated RBC % 0.0 Sodium 138 Potassium 3.9 Chloride 106 Carbon Dioxide 25 Anion Gap 7 BUN 24 H Creatinine 0.94 Estim Creat Clear Calc 73 Estimated GFR > 60 Glucose 85 Hemoglobin A1c 5.3 Lactic Acid 1.5 Calcium 9.3 Magnesium 2.2 Total Bilirubin 1.3 AST 41 ALT 14 Alkaline Phosphatase 56 Total Creatine Kinase 677 H Total Protein 6.7 Albumin 4.0 Urine Color Dark yellow Urine Appearance Turbid H Urine pH 5.0 Ur Specific [place] 1.023 Urine Protein 4+ H Urine Glucose (UA) Trace H Urine Ketones Trace H Ur Blood (Man) 3+ H Urine Nitrate Negative Urine Bilirubin 2+ H Urine Urobilinogen 1.0 Add Ur Microanalysis Reviewed Leukocyte Esterase Rfl 1+ H Urine RBC 6-10 H Urine WBC 21-50 H Ur Squamous Epith Cells Few Urine Bacteria None seen Urine Casts >20 Hyaline Casts Present Granular Casts Present Waxy Casts Present H Urine Mucus Present Urine Eosinophils U Random Total Protein Ur Random Sodium Ur Random Urea Urine Creatinine Protein/Creat Ratio 2 Urine Opiates Screen Negative Urine Methadone Screen Negative Ur Barbiturates Screen Negative Ur Phencyclidine Scrn Negative Ur Amphetamine Screen Negative U Benzodiazepines Scrn Negative Urine Cocaine Screen Negative U Cannabinoids Screen Positive A 11/19/24 11/19/24 11/19/24 06:12 06:12 06:12 WBC RBC Hgb Hct MCV MCH MCHC RDW Plt Count MPV Immature Gran % (Auto) Neut % (Auto) Lymph % (Auto) [place] % (Auto) Eos % (Auto) Baso % (Auto) Lymph # (Auto) [place] # (Auto) Eos # (Auto) Baso # (Auto) Abs Immat Gran (auto) Absolute Neuts (auto) Absolute Nucleated RBC Nucleated RBC % Sodium Potassium Chloride Carbon Dioxide Anion Gap BUN Creatinine Estim Creat Clear Calc Estimated GFR Glucose Hemoglobin A1c Lactic Acid Calcium Magnesium Total Bilirubin AST ALT Alkaline Phosphatase Total Creatine Kinase Total Protein Albumin Urine Color Urine Appearance Urine pH Ur Specific [place] Urine Protein Urine Glucose (UA) Urine Ketones Ur Blood (Man) Urine Nitrate Urine Bilirubin Urine Urobilinogen Add Ur Microanalysis Leukocyte Esterase Rfl Urine RBC Urine WBC Ur Squamous Epith Cells Urine Bacteria Urine Casts Hyaline Casts Granular Casts Waxy Casts Urine Mucus Urine Eosinophils None seen U Random Total Protein 14 14 Ur Random Sodium 81 Cancelled Ur Random Urea 1164 Urine Creatinine 198.4 Protein/Creat Ratio 2 Urine Opiates Screen Urine Methadone Screen Ur Barbiturates Screen Ur Phencyclidine Scrn Ur Amphetamine Screen U Benzodiazepines Scrn Urine Cocaine Screen U Cannabinoids Screen 11/19/24 06:12 WBC RBC Hgb Hct MCV MCH MCHC RDW Plt Count MPV Immature Gran % (Auto) Neut % (Auto) Lymph % (Auto) [place] % (Auto) Eos % (Auto) Baso % (Auto) Lymph # (Auto) [place] # (Auto) Eos # (Auto) Baso # (Auto) Abs Immat Gran (auto) Absolute Neuts (auto) Absolute Nucleated RBC Nucleated RBC % Sodium Potassium Chloride Carbon Dioxide Anion Gap BUN Creatinine Estim Creat Clear Calc Estimated GFR Glucose Hemoglobin A1c Lactic Acid Calcium Magnesium Total Bilirubin AST ALT Alkaline Phosphatase Total Creatine Kinase Total Protein Albumin Urine Color Urine Appearance Urine pH Ur Specific [place] Urine Protein Urine Glucose (UA) Urine Ketones Ur Blood (Man) Urine Nitrate Urine Bilirubin Urine Urobilinogen Add Ur Microanalysis Leukocyte Esterase Rfl Urine RBC Urine WBC Ur Squamous Epith Cells Urine Bacteria Urine Casts Hyaline Casts Granular Casts Waxy Casts Urine Mucus Urine Eosinophils U Random Total Protein Ur Random Sodium Ur Random Urea Urine Creatinine 195.7 Protein/Creat Ratio 2 0.07 Urine Opiates Screen Urine Methadone Screen Ur Barbiturates Screen Ur Phencyclidine Scrn Ur Amphetamine Screen U Benzodiazepines Scrn Urine Cocaine Screen U Cannabinoids Screen Quality VTE Prophylaxis VTE prophylaxis: mechanical ordered
--- NOTE | 2024-11-19 11:00 | P.PNGS_ITS ---
Progress Note: A&P Assessment and Plan (1) Abdominal pain: Code(s): R10.9 - Unspecified abdominal pain Status: Acute Assessment and Plan: * Abdominal exam benign today. Upper GI series yesterday was unremarkable. No evidence extraluminal leakage contrast in the region of gas identified on prior CT which is likely within the duodenal bulb which placed slightly more cephalad than typical. Patient did have a couple episodes of spontaneous gastroesophageal reflux of small amounts of contrast into the distal esophagus. WBC decreased to 12.3. * Patient is a current smoker. Discussed risks of gastric ulcer perforation and encouraged cessation. * If patient able to tolerate regular diet, he can be discharged from a surgical standpoint. States that he is going to follow up wiht GI back home, as he is not from around here. (2) Acute kidney injury: Code(s): N17.9 - Acute kidney failure, unspecified Status: Acute Assessment and Plan: Kidney function improving with aggressive IV rehydration. Nephrology on board. Plan Discussed patient's case and plan of care with Dr. Anthony. Subjective Subjective Date/Time Seen: 11/19/24 11:00 Patient reports: no new complaints, feels better, tolerating liquids well and afebrile Interval history: Patient is doing well today. Up and walking today. Had two bowel movements overnight. Vitals stable. WBC dropped to 12.3 from 25.8. No nausea or vomiting with clear liquids. Renal function improving. Exam Const: General: comfortable and no acute distress GI: Inspection: non-distended GI Palp: Yes Soft to palpation, No Tenderness to palpation present (GI) and No Guarding due to palpation present (GI) Auscultation: normal bowel sounds Psych: Mental Status: mental status grossly normal Objective Data Vital Signs Vital Signs: Vital Signs - 24 hr 11/18/24 13:55 11/18/24 20:00 11/18/24 20:20 Temperature 98.2 F Pulse Rate 72 Respiratory Rate 18 Blood Pressure 158/72 H Pulse Oximetry 97 97 Oxygen Delivery Room Air Room Air Fraction of Inspired Oxygen 21 11/18/24 22:00 11/19/24 03:48 Temperature 98.0 F 98.9 F Pulse Rate 82 60 Respiratory Rate 16 18 Blood Pressure 114/65 117/71 Pulse Oximetry 100 98 Oxygen Delivery Fraction of Inspired Oxygen Intake/Output Intake/Output: Intake & Output 11/16/24 11/17/24 11/18/24 11/19/24 23:59 23:59 23:59 23:59 Intake Total 3341.7 1530 Balance 3341.7 1530 Meds/Results Medications: Active Medications Generic Name Dose Route Start Last Admin Trade Name Freq PRN Reason Stop Dose Admin Ceftriaxone Sodium 1 gm/ 50 mls @ 100 mls/hr 11/19/24 09:00 11/19/24 08:12 Sodium Chloride IVPB 100 mls/hr Q24H YAS Administration Metronidazole 500 mg in 100 mls @ 100 mls/hr 11/18/24 21:00 11/19/24 05:34 Flagyl 500 Mg/Iso Soln 100 Ml IVPB 100 mls/hr Q8HR YAS Administration Lactated Ringer's 1,000 mls @ 125 mls/hr 11/18/24 11:35 11/19/24 08:04 Lr - Lactated Ringers Iv IV CONT 125 mls/hr .Q8H YAS Administration Morphine Sulfate 2 mg 11/18/24 11:35 11/19/24 10:54 Morphine Sulfate (*Crx) 4 Mg/Ml Inj IV PUSH 2 mg Q4H PRN Administration Pain Rated 7-10 Ondansetron HCl 4 mg 11/18/24 11:34 Ondansetron Inj 4 Mg/2 Ml Vial IV PUSH Q4HR PRN nausea/vomiting Pantoprazole Sodium 40 mg 11/18/24 11:35 11/19/24 08:07 Pantoprazole Sodium Iv 40 Mg Vial IV PUSH 40 mg BID AYS Administration Prochlorperazine Edisylate 10 mg 11/18/24 12:31 11/18/24 20:59 Prochlorperazine Edisylate 10 Mg/2 Ml Vial IV PUSH 10 mg Q6H PRN Administration Nausea And Vomiting Radiology Results: ITS Impressions Abdomen/Pelvis CT 11/18/24 08:48 IMPRESSION: Unusual air collection detailed above possibly a large eccentrically located gastric diverticulum although the appearance is atypical. Possibility of a contained perforated gastric ulcer is not excluded. Clinical correlation is required. Endoscopy may be of benefit Upper GI Series 11/18/24 12:24 IMPRESSION: 1. A couple episodes of spontaneous gastroesophageal reflux of small amounts of contrast into the distal esophagus. Otherwise unremarkable upper GI study. Of note there is no evident extraluminal leakage of contrast in the region of gas identified on prior CT which is likely within the duodenal bulb which lies sl ightly more cephalad than typical. Labs Labs: Laboratory Results - last 24 hr 11/18/24 11/19/24 11/19/24 08:47 04:41 06:12 WBC 12.3 H RBC 4.91 Hgb 15.4 D Hct 44.5 MCV 90.6 MCH 31.4 MCHC 34.6 RDW 13.0 Plt Count 227 MPV 10.7 H Immature Gran % (Auto) 0.2 Neut % (Auto) 75.2 H Lymph % (Auto) 17.5 L [place] % (Auto) 6.3 Eos % (Auto) 0.6 Baso % (Auto) 0.2 Lymph # (Auto) 2.16 [place] # (Auto) 0.8 H Eos # (Auto) 0.1 Baso # (Auto) 0.0 Abs Immat Gran (auto) 0.03 Absolute Neuts (auto) 9.2 H Absolute Nucleated RBC 0.000 Nucleated RBC % 0.0 Sodium 138 Potassium 3.9 Chloride 106 Carbon Dioxide 25 Anion Gap 7 BUN 24 H Creatinine 0.94 Estim Creat Clear Calc 73 Estimated GFR > 60 Glucose 85 Hemoglobin A1c 5.3 Calcium 9.3 Magnesium 2.2 Total Bilirubin 1.3 AST 41 ALT 14 Alkaline Phosphatase 56 Total Creatine Kinase 677 H Total Protein 6.7 Albumin 4.0 Urine Eosinophils None seen U Random Total Protein 14 Ur Random Sodium Ur Random Urea Urine Creatinine Protein/Creat Ratio 2 Urine Opiates Screen Negative Urine Methadone Screen Negative Ur Barbiturates Screen Negative Ur Phencyclidine Scrn Negative Ur Amphetamine Screen Negative U Benzodiazepines Scrn Negative Urine Cocaine Screen Negative U Cannabinoids Screen Positive A 11/19/24 11/19/24 11/19/24 06:12 06:12 06:12 WBC RBC Hgb Hct MCV MCH MCHC RDW Plt Count MPV Immature Gran % (Auto) Neut % (Auto) Lymph % (Auto) [place] % (Auto) Eos % (Auto) Baso % (Auto) Lymph # (Auto) [place] # (Auto) Eos # (Auto) Baso # (Auto) Abs Immat Gran (auto) Absolute Neuts (auto) Absolute Nucleated RBC Nucleated RBC % Sodium Potassium Chloride Carbon Dioxide Anion Gap BUN Creatinine Estim Creat Clear Calc Estimated GFR Glucose Hemoglobin A1c Calcium Magnesium Total Bilirubin AST ALT Alkaline Phosphatase Total Creatine Kinase Total Protein Albumin Urine Eosinophils U Random Total Protein 14 Ur Random Sodium 81 Cancelled Ur Random Urea 1164 Urine Creatinine 198.4 195.7 Protein/Creat Ratio 2 0.07 Urine Opiates Screen Urine Methadone Screen Ur Barbiturates Screen Ur Phencyclidine Scrn Ur Amphetamine Screen U Benzodiazepines Scrn Urine Cocaine Screen U Cannabinoids Screen
--- NOTE | 2024-11-19 11:56 | PM.DS ---
DS: Admitting Diagnosis Discharge Date 11/19 Admitting Diagnosis brianna, abd pain DS: Discharge Diagnosis Discharge Diagnosis (1) Abdominal pain: Code(s): R10.9 - Unspecified abdominal pain Status: Acute (2) Acute kidney injury: Code(s): N17.9 - Acute kidney failure, unspecified Status: Acute (3) Dehydration: Code(s): E86.0 - Dehydration Status: Acute (4) Nausea & vomiting: Qualifiers: Vomiting type: unspecified Qualified Code(s): R11.2 - Nausea with vomiting, unspecified Code(s): R11.2 - Nausea with vomiting, unspecified Status: Acute (5) Diarrhea: Code(s): R19.7 - Diarrhea, unspecified Status: Acute (6) Hypercalcemia: Code(s): E83.52 - Hypercalcemia Status: Acute (7) Leucocytosis: Code(s): D72.829 - Elevated white blood cell count, unspecified Status: Acute (8) UTI (urinary tract infection): Code(s): N39.0 - Urinary tract infection, site not specified Status: Acute DS: Summary Hospital Course Hospital Course: 29-year-old male with past medical history of untreated Crohn's disease presenting with abdominal pain, nausea, vomiting, diarrhea. CT abdomen pelvis with Unusual air collection detailed above possibly a large eccentrically located gastric diverticulum although the appearance is atypical. Possibility of a contained perforated gastric ulcer is not excluded. Surgery has been consulted. 1.Perforated gastric ulcer: Admit to general medicine NPO IV fluids Zofran, Compazine p.r.n. for nausea, vomiting PPI IV b.i.d. Surgery has been consulted, appreciate the recommendation Plan for NG tube, GI series after NG tube has been placed Obtain blood culture Will start on ceftriaxone, Flagyl Patient has been having diarrhea, will obtain C diff as well Will consider GI consult if necessary 11/19 wbc 25.8 down to 12.3 today surgery saw him- no acute intervention needed-advance diet pt wants referral to his home town GI- [facility]- referral rx written for pt -will downgrade to po antibiotics and d/c with RX for augmentin - surgery ok with advancing diet and discharge 2. Acute kidney injury+ metabolic acidosis+ electrolyte abnormality: All likely in setting of severe dehydration due to ongoing nausea, vomiting, diarrhea Noted hemoconcentration with elevated hemoglobin/hematocrit Continue with IV fluids Avoid nephrotoxins Recheck BMP in a.m. Kidneys looked unremarkable on CT scan done today Nephrology consult Noted anion gap metabolic acidosis, hypercalcemia, hypermagnesemia Again continue with IV fluids cr.bun 0.90/24 down from 3. nephrology following continue with IV fluids Nephrology ok with discharge- as kidney function significantly improved 3. Possible UTI: Continue with ceftriaxone Follow-up urine culture will discharge with augmentin to finish the course -monitor ua culture/sensitivities results Status at Discharge Functional status at discharge: independent ambulation Overall status at discharge: patient is progressing back to baseline Time Spent with Patient Time attestation: Total time spent providing and/or coordinating discharge services: Time spent: Greater than 30 minutes Exam Const: General: comfortable HENMT: Face/Nose/Sinus: Normal nares present Mouth: Yes moist mucous membranes Eyes: Sclera: sclerae normal Neck: Neck: supple Resp: Effort & Inspection: normal respiratory effort Auscultation: clear to auscultation bilaterally Cardio: Rate: regular rate Rhythm: regular rhythm GI: Auscultation: normal bowel sounds Skin: General skin exam: normal color Neuro: Speech: normal speech Extrem: General: normal to inspection Psych: Mental Status: mental status grossly normal DS: Data Data Completed and Pending Completed studies during hospitalization: upper gi series Labs on day of discharge: Labs from last 24 hours 11/19/24 11/19/24 11/19/24 06:12 06:12 06:12 WBC RBC Hgb Hct MCV MCH MCHC RDW Plt Count MPV Immature Gran % (Auto) Neut % (Auto) Lymph % (Auto) [place] % (Auto) Eos % (Auto) Baso % (Auto) Lymph # (Auto) [place] # (Auto) Eos # (Auto) Baso # (Auto) Abs Immat Gran (auto) Absolute Neuts (auto) Absolute Nucleated RBC Nucleated RBC % Sodium Potassium Chloride Carbon Dioxide Anion Gap BUN Creatinine Estim Creat Clear Calc Estimated GFR Glucose Hemoglobin A1c Calcium Magnesium Total Bilirubin AST ALT Alkaline Phosphatase Total Creatine Kinase Total Protein Albumin Urine Eosinophils U Random Total Protein 14 Ur Random Sodium Cancelled 81 Ur Random Urea 1164 Urine Creatinine 195.7 198.4 Protein/Creat Ratio 2 0.07 Urine Opiates Screen Urine Methadone Screen Ur Barbiturates Screen Ur Phencyclidine Scrn Ur Amphetamine Screen U Benzodiazepines Scrn Urine Cocaine Screen U Cannabinoids Screen 11/19/24 11/19/24 11/18/24 06:12 04:41 08:47 WBC 12.3 H RBC 4.91 Hgb 15.4 D Hct 44.5 MCV 90.6 MCH 31.4 MCHC 34.6 RDW 13.0 Plt Count 227 MPV 10.7 H Immature Gran % (Auto) 0.2 Neut % (Auto) 75.2 H Lymph % (Auto) 17.5 L [place] % (Auto) 6.3 Eos % (Auto) 0.6 Baso % (Auto) 0.2 Lymph # (Auto) 2.16 [place] # (Auto) 0.8 H Eos # (Auto) 0.1 Baso # (Auto) 0.0 Abs Immat Gran (auto) 0.03 Absolute Neuts (auto) 9.2 H Absolute Nucleated RBC 0.000 Nucleated RBC % 0.0 Sodium 138 Potassium 3.9 Chloride 106 Carbon Dioxide 25 Anion Gap 7 BUN 24 H Creatinine 0.94 Estim Creat Clear Calc 73 Estimated GFR > 60 Glucose 85 Hemoglobin A1c 5.3 Calcium 9.3 Magnesium 2.2 Total Bilirubin 1.3 AST 41 ALT 14 Alkaline Phosphatase 56 Total Creatine Kinase 677 H Total Protein 6.7 Albumin 4.0 Urine Eosinophils None seen U Random Total Protein 14 Ur Random Sodium Ur Random Urea Urine Creatinine Protein/Creat Ratio 2 Urine Opiates Screen Negative Urine Methadone Screen Negative Ur Barbiturates Screen Negative Ur Phencyclidine Scrn Negative Ur Amphetamine Screen Negative U Benzodiazepines Scrn Negative Urine Cocaine Screen Negative U Cannabinoids Screen Positive A Discharge Plan Discharge Attending physician on discharge: Michelle Mosqueda Consulting providers: Tania Anthony; Junito Dean Discharging Clinician: Kailee Avitia Patient Disposition: Home Activity: may shower Diet: as tolerated and other - see discharge instructions Discharge Instructions: Please complete antibiotic tx as prescribed. Referral provided for you for GI at your home town. Patient Instructions: Antibiotic Form Patient Language: Icelandic Stand Alone Forms: General Discharge Information Follow-up/Referrals: UNKNOWN,DOCTOR [Primary Care Provider] - 2 Weeks Discharge Medications: New amoxicillin-pot clavulanate 875-125 mg tablet 1 tablet PO Q12H Qty: 11 0RF Date of admission: 11/18/24 11:34 Primary Care Provider: UNKNOWN,DOCTOR Admitting Provider: Michelle Mosqueda Attending physician on admission: Michelle Mosqueda Condition: Improved Quality VTE Prophylaxis VTE prophylaxis: mechanical ordered Hospitalist MIPS Heart Failure (Exclusion) Patient has history of Heart Transplant or Left Ventricular Assistive Device?: No IF YES, STOP HERE Heart Failure (Qualifier) Patient has current or prior documentation of LVEF less than or equal to 40%, or mod/servere depressed LVSF?: No IF NO, STOP HERE
[2024-11-19 13:51] VITALS: BP 131/61; PULSE 54; RESP 18; TEMP 37.1; O2SAT 99
--- NOTE | 2024-11-20 08:02 | PC.NURSE ---
Urine cx shows no growth.
== END 2024-11-19 14:04 | disposition home or self-care (01) | DRG 469 ==
LOC: ANHED 07:25 → ANH2MED 11:46
PROVIDERS: Internal Medicine; Internal Medicine Nephrology; Admitting Provider General Practice; Emergency Provider General Practice; Visit Provider Nurse Practitioner
DX: N17.9 Acute kidney failure, unspecified (principal); R10.9 Unspecified abdominal pain; K50.918 Crohn's disease, unspecified, with other complication; K25.5 Chronic or unspecified gastric ulcer with perforation; E83.52 Hypercalcemia; E87.21 Acute metabolic acidosis; E86.0 Dehydration; E83.41 Hypermagnesemia; N39.0 Urinary tract infection, site not specified; K21.9 Gastro-esophageal reflux disease without esophagitis; R73.9 Hyperglycemia, unspecified; R81 Glycosuria; D72.829 Elevated white blood cell count, unspecified; F17.210 Nicotine dependence, cigarettes, uncomplicated
CPT/HCPCS: 36415; 74176; 74240; 80053; 80307; 81001; 81050; 82550; 82570; 83036; 83605; 83690; 83735; 84156; 84300; 84540; 85025; 85999; 87086; 96361; 96365; 96368; 96375; 99285; J0696; J0780; J1836; J2270; J2405; J2470; J2550; J7030; J7120